=== PATIENT | male | born 2000 | race Caucasian/White ===

== ENCOUNTER 2022-03-15 21:16 | Emergency (ER) | payer OTHER ==
[2022-03-15 22:26] LABS: BASOPHILS # (AUTO) 0.1 10^3/uL (0.0-0.1); BASOPHILS % (AUTO) 0.8 %; EOSINOPHILS # (AUTO) 0.3 10^3/uL (0.0-0.7); EOSINOPHILS % (AUTO) 3.5 %; HCT - HEMATOCRIT 46.7 % (42.0-52.0); HGB - HEMOGLOBIN 16.1 g/dL (14.0-18.0); LYMPHOCYTES # (AUTO) 2.1 10^3/uL (1.5-3.5); LYMPHOCYTES % (AUTO) 24.1 %; MEAN CORPUSCULAR HGB CONC 34.5 g/dL (32.0-36.0); MEAN PLATELET VOLUME 9.3 fL (7.4-11.4); MONOCYTES # (AUTO) 0.7 10^3/uL (0.0-1.0); MONOCYTES % (AUTO) 8.5 %; NEUTROPHILS # (AUTO) 5.5 10^3/uL (1.5-6.6); NEUTROPHILS % (AUTO) 62.9 %; PLT - PLATELET COUNT 264 10^3/uL (130-450); RED BLOOD COUNT 5.19 10^6/uL (4.70-6.10); RED CELL DISTRIBUTION WIDTH 12.3 % (12.0-15.0); WHITE BLOOD COUNT 8.7 x10^3/uL (4.8-10.8)
[2022-03-15 22:36] LABS: ALBUMIN 4.8 g/dL (3.2-5.5); ALBUMIN/GLOBULIN RATIO 1.7 (1.0-2.2); BILIRUBIN,TOTAL 0.9 mg/dL (0.2-1.0); CALCIUM 9.5 mg/dL (8.5-10.3); CREATININE 1.2 mg/dL (0.6-1.2); POTASSIUM 3.6 mmol/L (3.5-5.0); TOTAL PROTEIN 7.6 g/dL (6.7-8.2)
[2022-03-15] MEDS ORDERED: KETOROLAC 15 MG/ML VIAL IVP STA (23:36)
[2022-03-15] MEDS ORDERED: SODIUM CHLORIDE 0.9% 1,000 ML IV STA (23:40)
--- NOTE | 2022-03-15 23:43 | ED Physician Documentation ---
History of Present Illness - Stated complaint Stated Complaint: LFT UPPER BODY PX - Chief complaint Chief Complaint: Abd Pain - History obtained from History obtained from: Patient - Additonal information Additional information: 21-year-old man, previously healthy aside from some chronic diarrhea issues, presents with left lower quadrant pain radiating to the groin and left flank Starting about an hour prior to arrival, sudden onset. He had been feeling normal prior to that. Denies fever, nausea, Urinary symptoms. No prior surgical history. Review of Systems Constitutional: denies: Fever GI: reports: Abdominal Pain, Diarrhea. denies: Nausea, Vomiting, Bloody / black stool PD PAST MEDICAL HISTORY - Present Medications Home Medications: Ambulatory Orders Medication Instructions Recorded Confirmed Ketorolac [Toradol] 10 mg PO Q6H PRN #30 tablet 03/16/22 - Allergies Allergies/Adverse Reactions: Allergies Allergy/AdvReac Type Severity Reaction Status Date / Time No Known Drug Allergies Allergy Verified 03/15/22 21:53 PD ED PE NORMAL - Vitals Vital signs reviewed: Yes - General General: Alert and oriented X 3, Other (Mild to moderate distress) - HEENT HEENT: Atraumatic, PERRL, EOMI, Moist mucous membranes - Neck Neck: Supple, no meningeal sign - Cardiac Cardiac: RRR - Respiratory Respiratory: No respiratory distress, Clear bilaterally - Abdomen Abdomen: Other (Left lower quadrant tender to palpation) - Back Back: No CVA TTP - Derm Derm: Normal color, Warm and dry - Neuro Neuro: Alert and oriented X 3 Results - Vitals Vitals: Vital Signs - 24 hr 03/15/22 03/15/22 03/16/22 21:54 23:51 00:13 Temperature 37.2 C Heart Rate 100 100 97 Respiratory 18 17 17 Rate Blood Pressure 119/85 H 138/92 H 141/86 H O2 Saturation 97 100 100 03/16/22 01:50 Temperature Heart Rate 85 Respiratory 17 Rate Blood Pressure 130/85 H O2 Saturation 100 Oxygen O2 Source Room air - Labs Labs: Laboratory Tests 03/15/22 03/15/22 03/16/22 22:18 22:18 00:51 WBC 8.7 RBC 5.19 Hgb 16.1 Hct 46.7 MCV 90.0 MCH 31.0 MCHC 34.5 RDW 12.3 Plt Count 264 MPV 9.3 Neut # (Auto) 5.5 Lymph # (Auto) 2.1 [place] # (Auto) 0.7 Eos # (Auto) 0.3 Baso # (Auto) 0.1 Absolute Nucleated RBC 0.00 Nucleated RBC % 0.0 Sodium 138 Potassium 3.6 Chloride 98 L Carbon Dioxide 30 Anion Gap 10.0 BUN 16 Creatinine 1.2 Estimated GFR (MDRD) 76 L Glucose 121 H Calcium 9.5 Total Bilirubin 0.9 AST 28 ALT 66 H Alkaline Phosphatase 43 Total Protein 7.6 Albumin 4.8 Globulin 2.8 Albumin/Globulin Ratio 1.7 Lipase 37 Urine Color YELLOW Urine Clarity SL. CLOUDY Urine pH 6.0 Ur Specific [place] >=1.030 H Urine Protein 30 H Urine Glucose (UA) NEGATIVE Urine Ketones TRACE Urine Occult Blood LARGE H Urine Nitrite NEGATIVE Urine Bilirubin NEGATIVE Urine Urobilinogen 0.2 (NORMAL) Ur Leukocyte Esterase NEGATIVE Urine RBC TNTC H Urine WBC 0-3 Ur Squamous Epith Cells NONE SEEN Urine Bacteria Few Ur Microscopic Review INDICATED Urine Culture Comments NOT INDICATED PD Medical Decision Making - ED course ED course: 21-year-old man, previously healthy aside from some chronic diarrhea issues, presents with left lower quadrant pain radiating to the groin and left flank Starting about an hour prior to arrival, sudden onset. He had been feeling normal prior to that. Denies fever, nausea, currently with pain 9 out of 10.Suspect renal stone versus diverticulitis. Patient has leukocytosis on lab work. ED obtain urinalysis to evaluate for hematuria and if positive for blood, will do CT. u/a with blood concerning for stone. CT a/p performed with 5mm stone in L midureter. no uti. plan to f/u outpatient urology. analgesia prescribed. return precautions given. Departure - Departure Clinical Impression: Kidney stone Condition: Good Instructions: Kidney Stones Prescriptions: Ketorolac [Toradol] 10 mg PO Q6H PRN #30 tablet PRN Reason: Pain Comments: You were seen in the emergency department for kidney stones. Please follow-up with urology. Return to the emergency department if you have new or worsening symptoms or other concerns. toradol pain medication sent electronically to [facility] pharmacy.
[2022-03-16 01:03] LABS: BILIRUBIN,URINE NEGATIVE (NEGATIVE); GLUCOSE, URINE (UA) NEGATIVE (NEGATIVE); KETONES,URINE (UA) TRACE mg/dL (NEGATIVE); LEUKOCYTE ESTERASE, URINE NEGATIVE (NEGATIVE); NITRITE,URINE NEGATIVE (NEGATIVE); OCCULT BLOOD,URINE LARGE (NEGATIVE); PROTEIN,URINE 30 mg/dL (NEGATIVE); UROBILINOGEN,URINE 0.2 (NORMAL) E.U./dL (NORMAL)
[2022-03-16 01:04] LABS: CLARITY,URINE SL. CLOUDY (CLEAR)
[2022-03-16 01:10] LABS: BACTERIA,URINE Few /HPF (None Seen); RBC,URINE TNTC /HPF (0-5); SQUAMOUS EPITHELIAL CELL,UR NONE SEEN (<= Few); WBC,URINE 0-3 /HPF (0-3)
[2022-03-16 01:51] VITALS: BP 130/85
--- NOTE | 2022-03-16 11:02 | CT Report ---
PROCEDURE: ABDOMEN/PELVIS WO INDICATIONS: L flank pain rad to groin TECHNIQUE: Noncontrast 5 mm thick sections acquired from the diaphragms to the symphysis. 5 mm coronal and sagi ttal reformats were then performed. For radiation dose reduction, the following was used: automated exposure control, adjustment of mA and/or kV according to patient size. COMPARISON: None. FINDINGS: Image quality: Excellent. ABDOMEN: Lung bases: Lung bases are clear. Heart size is normal. Small hiatal hernia. Solid organs: Liver and spleen are normal in size. Gallbladder is normal Pancreas is normal in con tours. No adrenal nodules. There is a 5 mm stone in the mid left ureter with CT density similar 392.9 HU. There is mild left hyd ronephrosis. Additional 1-2 mm nonobstructive stones are seen in kidneys bilaterally. Kidneys are nor mal in size. Peritoneum and bowel: Unenhanced bowel loops demonstrate normal wall thickness and caliber. Appendi x is normal. No free fluid or air. Nodes and vessels: There are borderline enlarged mesenteric lymph nodes measuring up to 1.1 cm in sh ort axis. No retroperitoneal adenopathy by size criteria. Aorta and inferior vena cava are normal in caliber. Miscellaneous: No ventral hernias. PELVIS: Genitourinary: Bladder is semicontracted. The bladder is stones. Miscellaneous: No inguinal hernias or adenopathy. Bones: No suspicious bony lesions. No vertebral body compression fractures. IMPRESSION: 1. A 5 mm obstructive stone in the mid left ureter causing mild left hydronephrosis. 2. Nephrolithiasis bilaterally with small 1-2 mmnonobstructive renal calculus. 3. Borderline enlarged mesenteric lymph nodes are present, nonspecific and most likely secondary to n onspecific mesenteric adenitis. Recommend clinical follow-up. No significant discrepancy with the preliminary interpretation. Reviewed by: Zia Perkins MD on 03/16/2022 11:01 AM PST Approved by: Zia Perkins MD on 03/16/2022 11:01 AM PST Station ID: [id number]
== END 2022-03-16 02:39 | disposition home or self-care (01) ==
LOC: ED 21:16
DX: N13.2 Hydronephrosis with renal and ureteral calculous obstruction (principal)
CPT/HCPCS: 36415; 80053; 81001; 81003; 83690; 85025; 87086; 96374; 99283

== ENCOUNTER 2023-08-31 10:17 | Emergency (ER) | payer OTHER ==
[2023-08-31 10:43] LABS: BASOPHILS # (AUTO) 0.1 10^3/uL (0.0-0.1); BASOPHILS % (AUTO) 1.1 %; EOSINOPHILS # (AUTO) 0.6 10^3/uL (0.0-0.7); EOSINOPHILS % (AUTO) 8.6 %; HCT - HEMATOCRIT 47.7 % (42.0-52.0); LYMPHOCYTES # (AUTO) 2.6 10^3/uL (1.5-3.5); LYMPHOCYTES % (AUTO) 39.8 %; MEAN CORPUSCULAR HEMOGLOBIN 31.1 pg (27.0-31.0); MEAN CORPUSCULAR HGB CONC 35.6 g/dL (32.0-36.0); MEAN CORPUSCULAR VOLUME 87.4 fL (80.0-94.0); MEAN PLATELET VOLUME 9.5 fL (7.4-11.4); MONOCYTES # (AUTO) 0.6 10^3/uL (0.0-1.0); MONOCYTES % (AUTO) 8.3 %; NEUTROPHILS # (AUTO) 2.8 10^3/uL (1.5-6.6); PLT - PLATELET COUNT 309 10^3/uL (130-450); RED BLOOD COUNT 5.46 10^6/uL (4.70-6.10); RED CELL DISTRIBUTION WIDTH 12.1 % (12.0-15.0); WHITE BLOOD COUNT 6.6 x10^3/uL (4.8-10.8)
[2023-08-31] MEDS: SODIUM CHLORIDE 0.9% 1,000 ML IV STA (10:44)
[2023-08-31] MEDS: HYDROmorphone 1 MG/ML CARPUJECT IVP STA (10:45)
[2023-08-31] MEDS: ONDANSETRON 4 MG/2 ML VIAL IVP STA (10:45)
[2023-08-31] MEDS: KETOROLAC 15 MG/ML VIAL IVP STA (10:45)
[2023-08-31 11:02] LABS: ALBUMIN 5.1 g/dL (3.2-5.5); BILIRUBIN,TOTAL 0.8 mg/dL (0.2-1.0); CALCIUM 10.3 mg/dL (8.5-10.3); CREATININE 1.3 mg/dL (0.6-1.3); POTASSIUM 3.5 mmol/L (3.5-4.5); TOTAL PROTEIN 7.6 g/dL (6.4-8.9)
[2023-08-31] MEDS ORDERED: iohexoL-300 100 ML VIAL ONE (11:47)
[2023-08-31] MEDS: TAMSULOSIN 0.4 MG CAPSULE PO STA (12:35)
[2023-08-31] MEDS: DEXAMETHASONE 10 MG/ML VIAL IVP STA (12:35)
--- NOTE | 2023-08-31 13:10 | ED Physician Documentation ---
PD HPI ABD PAIN - Stated complaint Stated Complaint: RT ABD PX - Chief complaint Chief Complaint: Abd Pain - History obtained from History obtained from: Patient - History of Present Illness Timing - onset: How many hours ago (few), Today Timing - duration: Hours Timing - details: Abrupt onset, Still present Quality: Aching, Sharp, Pain Location: RLQ Radiation: Right flank Improved by: No: Laying still Worsened by: No: Moving, Breathing, Position, Palpation Associated symptoms: Nausea, Vomiting. No: Fever, Diarrhea, Constipation, Dysuria Similar symptoms before: Diagnosis (kidney stones twice in the past.) Review of Systems Constitutional: denies: Fever, Chills Nose: denies: Rhinorrhea / runny nose, Congestion Throat: denies: Sore throat Respiratory: denies: Cough PD PAST MEDICAL HISTORY - Past Medical History Cardiovascular: None Respiratory: None Neuro: None Endocrine/Autoimmune: None GI: Other : None HEENT: None Psych: None Musculoskeletal: None Derm: None - Past Surgical History Past Surgical History: Yes HEENT: Other - Present Medications Home Medications: Ambulatory Orders Medication Instructions Recorded Confirmed Ibuprofen [Motrin] 600 mg PO TID PRN #25 tab 08/31/23 Ondansetron Odt [Zofran] 4 mg TL Q6H PRN #10 tablet 08/31/23 Oxycodone HCl/Acetaminophen 1 each PO Q6H PRN #20 tablet 08/31/23 [Percocet 5-325 mg Tablet] Tamsulosin [Flomax] 0.4 mg PO DAILY #5 cap 08/31/23 - Allergies Allergies/Adverse Reactions: Allergies Allergy/AdvReac Type Severity Reaction Status Date / Time No Known Drug Allergies Allergy Verified 08/31/23 10:39 - Social History Does the pt smoke?: No Smoking Status: Never smoker Does the pt drink ETOH?: No Does the pt have substance abuse?: No - Immunizations Immunizations are current?: Yes - POLST Patient has POLST: No PD ED PE NORMAL - Vitals Vital signs reviewed: Yes - General General: Alert and oriented X 3, Well developed/nourished, Other (appears in considerable pain abdomen.) - Cardiac Cardiac: RRR, No murmur - Respiratory Respiratory: Clear bilaterally - Abdomen Abdomen: Normal bowel sounds, Soft, Non distended, No organomegaly, Other (tender right abd without guarding nor percussion tenderness. ) - Derm Derm: Normal color, Warm and dry Results - Vitals Vitals: Vital Signs - 24 hr 08/31/23 08/31/23 08/31/23 10:25 12:30 13:20 Temperature 36.2 C L 36.3 C L Heart Rate 80 67 64 Respiratory 21 15 16 Rate Blood Pressure 132/89 H 107/64 108/65 O2 Saturation 100 99 100 Oxygen O2 Source Room air - Labs Labs: Laboratory Tests 08/31/23 08/31/23 10:38 10:38 WBC 6.6 RBC 5.46 Hgb 17.0 Hct 47.7 MCV 87.4 MCH 31.1 H MCHC 35.6 RDW 12.1 Plt Count 309 MPV 9.5 Neut # (Auto) 2.8 Lymph # (Auto) 2.6 [place] # (Auto) 0.6 Eos # (Auto) 0.6 Baso # (Auto) 0.1 Absolute Nucleated RBC 0.00 Nucleated RBC % 0.0 Sodium 139 Potassium 3.5 Chloride 102 Carbon Dioxide 30 Anion Gap 7.0 BUN 12 Creatinine 1.3 Estimated GFR (MDRD) 68 L Glucose 98 Calcium 10.3 Total Bilirubin 0.8 AST 20 ALT 39 Alkaline Phosphatase 51 Total Protein 7.6 Albumin 5.1 Globulin 2.5 Albumin/Globulin Ratio 2.0 Lipase 24 - Rads (name of study) abd/pelvic CT Relevant Findings:: Prelim report reviewed, EMP independent interpretation of test (3-4 mm stone distal right ureter with mild hydronephrosis. ) PD Medical Decision Making - ED course Complexity details: reviewed results (CT showing 3 mm stone distal right urter, with mild hydronephrosis. UA not obtained. Renal function normal. ), re- evaluated patient (he is feeling improved to comfortable level after IV fluids, dilaudid, toradol, Zofran. Given tamsulosin as well. ), considered differential (abrupt pain right abd and flank c/w likely kidney stone. He has had two in the past, several years ago. ), d/w patient Departure - Departure Disposition: 01 Home, Self Care Clinical Impression: Right sided abdominal pain, Ureterolithiasis Condition: Stable Record reviewed to determine appropriate education?: Yes Instructions: ED Stone Renal W Colic Follow-Up: [facility] [Provider Group] Andrés Talamantes MD [Provider Admit Priv/Credential] - Prescriptions: Tamsulosin [Flomax] 0.4 mg PO DAILY #5 cap Ibuprofen [Motrin] 600 mg PO TID PRN #25 tab PRN Reason: Pain Oxycodone HCl/Acetaminophen [Percocet 5-325 mg Tablet] 1 each PO Q6H PRN #20 tablet PRN Reason: pain Ondansetron Odt [Zofran] 4 mg TL Q6H PRN #10 tablet PRN Reason: Nausea / Vomiting Comments: You do have a kidney stone in the ureter. The size is a about 3 mm so a passable size and its well down low in the ureter almost to the bladder. There is a cuff of muscle in that area that can impede the passage of it and that last little bit but he should be able to pass. I would suggest staying well-hydrated. Rest today for shoulder. Anti- inflammatory such as ibuprofen 3 times daily with food. Ondansetron if needed for nausea. TMs lucent and is a medication to help with spasming of the ureter and take that for the next few days. Add Tylenol every 4-6 hours if needed for pain or Percocet if needed for worse pain. I sent your prescriptions to [facility] pharmacy. Given the size and location of the stone, I would anticipate a passing in the next 1 or 2 days. I would continue the anti-inflammatories and tamsulosin for a few days though as the irritation and spasming of the ureter can continue due to the or ready occurred injury from the stone. Return if severe again. Follow-up with urology if it seems you have not passed this within the next several days or more. My narcotic instructionsI am prescribing a short course of narcotic pain medication for you. These are potentially dangerous and addictive medications that should be used carefully. These medications may constipate you. Take an yyxp-van-acappgl stool softener such as docusate twice daily with plenty of water while taking these medication s. If you go 24 hours without a bowel movement, take [id number] MiraLAX, per package instructions. Do not drink or drive while taking these medications. If you received narcotic or sedating medications while in the emergency department do not drive for 24 hours. Store this medication in a safe, secure place and out of reach of children. It is a violation of federal law to give or sell this medication to another person or to use in a manner other than prescribed. The ED will not refill narcotic prescriptions, including prescriptions lost or stolen. You can dispose of unwanted medications at the [facility]'s office or at several pharmacies such as [facility]. Forms: PCP List, Activity restrictions Discharge Date/Time: 08/31/23 13:21
[2023-08-31 13:28] VITALS: BP 108/65; O2SAT 100
--- NOTE | 2023-08-31 14:11 | CT Report ---
PROCEDURE: Abdomen/Pelvis WO INDICATIONS: right abd/flank pain c/w stone TECHNIQUE: A CT scan of the abdomen and pelvis was performed without the use of intravenous contrast. Images we re recorded and evaluated at appropriate window settings. Reformats: coronal and sagittal. For radiat ion dose reduction, the following was used: automated exposure control, adjustment of mA and/or kV ac cording to patient size. COMPARISON: CT of abdomen and pelvis without, 03/16/2022. FINDINGS: Image quality: Diagnostic. Lower chest: Unremarkable. Small hiatal hernia. Kidneys and ureters: There is a 4 mm stone at the right ureterovesical junction, demonstrating CT den sity 398 Hounsfield units. There is mild right hydronephrosis and hydroureter. Several small nonobstr uctive renal calculi are present bilaterally measuring 1-2 mm. Liver: No contour-deforming mass. Gallbladder: Gallbladder is normal. No gallstones. Biliary tree: No intrahepatic or extrahepatic dilation, accounting for age. Spleen: No splenomegaly. Pancreas: No pancreatic ductal dilation. Adrenals: No adrenal nodule. Stomach, bowel and peritoneum: No gastric or small bowel dilation. No abnormal wall thickening. No pa thologic free fluid. Moderate amount of stool in colon. Lymph nodes: No central or retroperitoneal adenopathy. Moderate prominent mesenteric lymph nodes are noted, nonspecific. Vessels: No infrarenal aortic aneurysm. Reproductive organs: Unremarkable. Bladder: Bladder wall is mildly thickened and irregular, which may be secondary to inadequate distent ion. No calcified bladder stones. Pelvic lymph nodes: No adenopathy by size criteria. Bones: No aggressive osseous abnormality. Other: No significant ventral or inguinal hernia. IMPRESSION: 1. A 4 mm obstructive stone at the right UVJ. There is mild right hydronephrosis and hydroureter. 2. Small nonobstructive renal calculi bilaterally. 3. Mild thickening and irregularity of the urinary bladder, which may be secondary to inadequate dist ention or cystitis. Please correlate with urinalysis. Reviewed by: Zia Perkins MD on 08/31/2023 2:10 PM PDT Approved by: Zia Perkins MD on 08/31/2023 2:10 PM PDT Station ID: [id number]
== END 2023-08-31 13:21 | disposition home or self-care (01) ==
LOC: ED 10:17
DX: N20.1 Calculus of ureter (principal)
CPT/HCPCS: 36415; 74176; 80053; 83690; 85025; 96374; 96375; 99283; 99284; A9270; J1170